=== PATIENT | male | born 1970 | race Caucasian/White ===

== ENCOUNTER 2022-11-25 10:32 | Outpatient (CLI) | payer OTHER, SELFPAY ==
--- NOTE | ~2022-11-25 | XR_ITS ---
EXAMINATION:XR cervical spine 4-5V DATE: 11/25/2022 11:59 INDICATION: Left arm numbness TECHNIQUE: AP, lateral, lateral swimmers and odontoid views of the cervical spine are provided. COMPARISON: None FINDINGS: Alignment is normal. The odontoid is intact. No fracture is identified. There are changes o f anterior fusion with interbody device placement from C4 through C6. There are changes of posterior fusion and laminectomy from C4 through T1. Prevertebral soft tissues are normal. 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 IMPRESSION: 1. Surgical changes as described above without acute findings. Reviewed, dictated and finalized at location [facility]
--- NOTE | ~2022-11-25 | MR_ITS ---
MRI of the cervical spine Clinical History: Degenerative disc disease Technique: Axial T2-weighted and gradient images, and sagittal T1-weighted, T2-weighted, and STIR melissa ges were acquired. Following intravenous administration of 18 cc MultiHance gadolinium, T1-weighted f at-sat imaging was performed in the axial and sagittal planes. Findings: There is anterior fusion of C4-C6, with anterior plate and fixation screws in place, with a ssociated susceptibility artifact. There is posterior fixation extending from C4 through T1, with tae ateral rods and transpedicular screws present. No acute bone marrow signal abnormality evident. There is probable minimal osseous canal stenosis at C4-C5. No disc bulge or herniation evident at any cervical level. No jocelyn cord compression identified in the cervical spine. Neural foramina are prob ably well preserved throughout, despite left facet joint hypertrophy at C3-C4. There is an amorphous area of mild T2 hyperintensity in the right side of the spinal cord at the C5-C 6 level (series 2 image 9, series 5 image 21). There is a curvilinear adjacent very T2 hyperintense s ignal area, which appears to pass outside the margins spinal cord, suggestive of artifactual signal. This finding cannot be evaluated on T1-weighted or T1-weighted postcontrast images due to obscuration by susceptibility artifact from the surrounding hardware. Impression: Focal area of minimal T2 hyperintensity the right side of the spinal cord at C5-C6 level, as detailed above. This is possibly artifactual in nature related to the surrounding hardware. Other considerati ons could include demyelinating plaque or other focal myelitis. Correlate with patient symptomatology . Consider follow-up exam as indicated. Anterior and posterior fusion hardware, as detailed above. No jocelyn spinal cord compression or neural foraminal narrowing identified. Reviewed, dictated and finalized at [facility]. E WRANGLER Impression: Focal area of minimal T2 hyperintensity the right side of the spinal cord at C5 -C6 level, as detailed above. This is possibly artifactual in nature related to the surrounding hardware. Other considerations could include demyelinating sheeba que or other focal myelitis. Correlate with patient symptomatology. Consider fo llow-up exam as indicated. Anterior and posterior fusion hardware, as detailed above. No jocelyn spinal cord compression or neural foraminal narrowing identified.
== END 2022-11-25 10:33 | disposition home or self-care (01) ==
DX: M47.22 Other spondylosis with radiculopathy, cervical region (principal); M48.02 Spinal stenosis, cervical region; Z98.1 Arthrodesis status
CPT/HCPCS: 72050; 72156; A9577